=== PATIENT | male | born 1950 | race Caucasian/White ===

== ENCOUNTER 2017-01-17 10:00 | Day surgery (SDC) | payer SELFPAY ==
[~2017-01-17] VITALS: Ht 154.9 cm; Wt 63.5 kg
[~2017-01-17 10:00] MED LIST: ARIPIPRAZOLE 10 MG TABLET PO ONE
== END 2017-01-17 10:05 | disposition home or self-care (01) ==
LOC: CANPRESDC → DS 10:00
DX: R55 Syncope and collapse (principal); Z75.3 Unavailability and inaccessibility of health-care facilities